=== PATIENT | female | born 1985 | race Caucasian/White ===

== ENCOUNTER 2019-08-29 12:04 | Emergency (ER) | payer OTHER ==
[2019-08-29 12:43] VITALS: TEMP 98.2; BMI 27.8
[2019-08-29] MEDS ORDERED: KETOROLAC TROMETHAMINE 60 MG/2 ML VIAL IM ONE (13:21)
[2019-08-29] MEDS ORDERED: KETOROLAC TROMETHAMINE 60 MG/2 ML VIAL ONE (13:27)
--- NOTE | 2019-08-29 14:03 | PDOC ---
History of Present Illness - General Chief Complaint: Pain Stated Complaint: MISCARRIAGE Time Seen by Provider: 08/29/19 13:13 History Source: Patient Exam Limitations: Clinical Condition - History of Present Illness Initial Comments: 08/29/19 13:35 Patient G1, P0 LMP May 27 with no significant past medical history present with complaint of 2 days history of vaginal bleeding and cramping abdominal pain status post miscarriage. Patient reporting seeing her VP SECURITY 4 days ago for routine and official ultrasound done shows IUP of 6 weeks and 6 days with heart rate with patient brought ultrasound report with her. Patient reported started having vaginal bleeding 2 days ago and went to [facility] which she was diagnosed with miscarriage and was advised to take Tylenol as needed for the pain but Tylenol has not been helping with the pain and still having cramping lower abdominal pain. Patient reported vaginal bleeding has been light today soaking noted 2 pads and 3 pads yesterday. Patient report taking Motrin 600 mg p.o. for pain as instructed by her VP SECURITY which she called for symptoms today with minimal improvement. Denies nausea, vomiting, fever, chills. Is this a multiple visit Asthma Patient?: No Timing/Duration: other (2 days) Past History - Past Medical History Allergies/Adverse Reactions: Allergies Allergy/AdvReac Type Severity Reaction Status Date / Time No Known Allergies Allergy Verified 08/29/19 12:38 Home Medications: Ambulatory Orders Ketorolac Tromethamine [Toradol] 10 mg PO Q8H PRN #20 tablet 08/29/19 CVA: No COPD: No CHF: No DVT: No - Reproductive History Is Patient Now?: No - Immunization History Immunization Up to Date: Yes - Psycho Social/Smoking Cessation Hx Smoking History: Never smoked Have you smoked in the past 12 months: No Information on smoking cessation initiated: No Hx Alcohol Use: No Drug/Substance Use Hx: No Review of Systems - Review of Systems Able to Perform ROS?: Yes Is the patient limited Lithuanian proficient: No Constitutional: No: Chills, Fever, Malaise HEENTM: No: Symptoms Reported, See HPI, Eye Pain, Blurred Vision, Tearing, Recent change in vision, Double Vision, Cataracts, Ear Pain, Ocular Prothesis, Ear Discharge, Nose Pain, Nose Congestion, Tinnitus, Nose Bleeding, Hearing Loss , Throat Pain, Throat Swelling, Mouth Pain, Dental Problems, Difficulty Swallowing, Mouth Swelling, Other Respiratory: No: Symptoms reported, See HPI, Cough, Orthopnea, Shortness of Breath, SOB with Exertion, SOB at Rest, Stridor, Wheezing, Productive cough, Hemoptysis, Other Cardiac (ROS): No: Symptoms Reported, See HPI, Chest Pain, Edema, Irregular Heart Rate, Lightheadedness, Palpitations, Syncope, Chest Tightness, Other ABD/GI: Yes: Symptoms Reported, See HPI, Nausea, Abdominal cramping (lower abdominal cramping pain). No: Abd. Pain w/ defecation, Blood Streaked Bowels, Constipated, Diarrhea, Difficulty Swallowing, Poor Appetite, Rectal Bleeding, Vomiting, Indigestion : No: Symptoms Reported, Burning, Discharge, Frequency, Urgency Musculoskeletal: No: Symptoms Reported Integumentary: No: Symptoms Reported, Rash Neurological: No: Symptoms reported, Weakness, Dizziness All Other Systems: Reviewed and Negative *Physical Exam - Vital Signs Last Vital Signs Temp Pulse Resp BP Pulse Ox 98.2 F 81 16 114/81 97 08/29/19 12:39 08/29/19 12:39 08/29/19 12:39 08/29/19 12:39 08/29/19 12:39 - Physical Exam General Appearance: Yes: Nourished, Appropriately Dressed, Moderate Distress HEENT: positive: Normal ENT Inspection Neck: positive: Supple Respiratory/Chest: positive: Lungs Clear, Normal Breath Sounds. negative: Respiratory Distress, Accessory Muscle Use Cardiovascular: positive: Regular Rhythm, Regular Rate Female Pelvic Exam: positive: cervical os closed, normal adnexa, vaginal bleeding (small amount of blood in vault. no active blood pooling) Musculoskeletal: positive: Normal Inspection Extremity: positive: Normal Inspection Integumentary: positive: Normal Color Neurologic: positive: Fully Oriented, Alert, Normal Response ED Treatment Course - LABORATORY CBC & Chemistry Diagram: 08/29/19 13:39 - RADIOLOGY Radiology Studies Ordered: Category Date Time Status TRANSVAGINAL US PREG [US] Stat Ultrasound 08/29/19 13:23 Ordered - Medications Given in the ED: ED Medications Discontinued Medications Generic Name Dose Route Start Last Admin Trade Name Freq PRN Reason Stop Dose Admin Ketorolac Tromethamine 60 mg 08/29/19 13:21 08/29/19 13:37 Toradol Injection - IM 08/29/19 13:22 60 mg ONCE ONE Administration Medical Decision Making - Medical Decision Making 08/29/19 14:37 Patient G1, P0 LMP May 27 with no significant past medical history present with complaint of 2 days history of vaginal bleeding and cramping abdominal pain status post miscarriage. Patient reporting seeing her VP SECURITY 4 days ago for routine and official ultrasound done shows IUP of 6 weeks and 6 days with heart rate with patient brought ultrasound report with her. Patient reported started having vaginal bleeding 2 days ago and went to [facility] which she was diagnosed with miscarriage and was advised to take Tylenol as needed for the pain but Tylenol has not been helping with the pain and still having cramping lower abdominal pain. Patient reported vaginal bleeding has been light today soaking noted 2 pads and 3 pads yesterday. Patient report taking Motrin 600 mg p.o. for pain as instructed by her VP [employer]URITY which she called for symptoms today with minimal improvement. Denies nausea, vomiting, fever, chills. Exam significant for patient guarding abdomen moderate discomfort. Mild tenderness to suprapubic region without guarding or rebound. Small amount of blood in vaginal vault with no blood pooling. Given patient already having miscarriage, will order Toradol 60 mg IM for pain. Repeat CBC to rule out anemia and better hCG to follow-up . Type and screen lab ordered to evaluate for possibility of needing RhoGam. Transvaginal ultrasound ordered to evaluate 08/29/19 16:17 CBC shows no acute abnormality. Beta hcg is 4686. Called made to [facility] ED and results obtained report beta hcg os 33,287 two days ago which has dropped significantly from today's labs. RH: A+. Patient report improvement in pain now . Patient stable for discharge on NSAIDS for spont with DRAMA PROFESSOR f/u and strict f/u instructions Discharge - Discharge Information Problems reviewed: Yes Clinical Impression/Diagnosis: Miscarriage Condition: Stable Disposition: HOME - Admission No - Additional Discharge Information Prescriptions: Ketorolac Tromethamine [Toradol] 10 mg PO Q8H PRN #20 tablet PRN Reason: pain - Follow up/Referral Referrals: Vaughn May MD [Staff Physician] - - Patient Discharge Instructions Patient Printed Discharge Instructions: DI for Miscarriage Additional Instructions: Your blood work shows hormone of 4686 which is a drop from 33,002 days ago from [facility]. This is consistent with miscarriage. Take prescribed medication as needed for pain. Follow-up with referring DRAMA PROFESSOR as soon as possible. Come back to the emergency room if worsening abdominal pain, fever, weakness - Post Discharge Activity
[2019-08-29 14:22] LABS: BASO % 0.2 % (0-2.0); EOS % 1.4 % (0-4.5); HEMATOCRIT 38.5 % (32.4-45.2); HEMOGLOBIN 13.1 GM/dL (10.7-15.3); MCH 28.6 pg (25.7-33.7); MEAN CELL VOLUME 84.1 fl (80-96); MEAN PLT VOLUME 7.9 fl (7.5-11.1); MONO % 6.3 % (3.8-10.2); NEUT % 76.1 % (42.8-82.8); PLATELET COUNT 277 K/MM3 (134-434); RBC 4.58 M/mm3 (3.60-5.2); RDW 12.9 % (11.6-15.6); WHITE BLOOD COUNT 14.6 K/mm3 (4.0-10.0)
[2019-08-29 17:16] VITALS: BP 120/67; PULSE 70
[2019-08-29 17:51] LABS: EPI CELLS 1.3 /HPF (0-5/HPF); HYALINE CASTS 1 /lpf (0-8); PH,URINE 7.5 (5.0-8.0); URINE APPEARANCE CLEAR; URINE BACTERIA 11.3 /hpf (NEGATIVE); URINE BILIRUBIN NEGATIVE (NEGATIVE); URINE COLOR YELLOW; URINE GLUCOSE (UA) NEGATIVE (NEGATIVE); URINE KETONE NEGATIVE (NEGATIVE); URINE LEUK ESTERASE NEGATIVE (NEGATIVE); URINE NITRITE NEGATIVE (NEGATIVE); URINE PROTEIN NEGATIVE (NEGATIVE); URINE RBC 216 /hpf (0-4); URINE UROBILINOGEN 0.2 mg/dL (0.2-1.0); URINE WBC 3 /hpf (0-5)
== END 2019-08-29 17:16 | disposition home or self-care (01) ==
LOC: SUPCPDRO 12:04 → JER 12:04
DX: O26.891 Other specified pregnancy related conditions, first trimester (principal); O03.9 Complete or unspecified spontaneous abortion without complication; Z3A.01 Less than 8 weeks gestation of pregnancy
CPT/HCPCS: 36415; 76817-TC; 81003; 84702; 85025; 86850; 86900; 86901; 87086; 99283-25